=== PATIENT | male | born 1980 | race Caucasian/White ===

== ENCOUNTER 2018-01-19 22:00 | Emergency (ER) | payer SELFPAY ==
[~2018-01-19] VITALS: Ht 177.8 cm; Wt 88.5 kg
[2018-01-19 22:20] VITALS: BP 156/84
[2018-01-19 23:02] LABS: BASOPHILS % (AUTO) 0.9 % (0.0-2.0); EOSINOPHILS % (AUTO) 4.2 % (0.0-3.0); HEMATOCRIT 53.4 % (42.0-52.0); LYMPHOCYTES % (AUTO) 32.1 % (20.0-45.0); MEAN CORPUSCULAR VOLUME 93 FL (80-99); MONOCYTES % (AUTO) 6.5 % (1.0-10.0); NEUTROPHILS % (AUTO) 56.3 % (45.0-75.0); PLATELET COUNT 306 K/UL (150-450); RED BLOOD COUNT 5.74 M/UL (4.70-6.10); RED CELL DISTRIBUTION WIDTH 11.3 % (11.6-14.8); WHITE BLOOD COUNT 7.3 K/UL (4.8-10.8)
[2018-01-19 23:03] LABS: HEMOGLOBIN 18.4 G/DL (14.2-18.0)
[2018-01-19 23:04] LABS: ANION GAP 10 mmol/L (5-15); BLOOD UREA NITROGEN 8 mg/dL (7-18); CALCIUM 8.6 MG/DL (8.5-10.1); CARBON DIOXIDE 29 MMOL/L (21-32); CHLORIDE 105 MMOL/L (98-107); CREATININE 0.6 MG/DL (0.55-1.30); POTASSIUM 3.9 MMOL/L (3.5-5.1); SODIUM 143 MMOL/L (136-145)
[2018-01-19 23:10] LABS: ALANINE AMINOTRANSFERASE 110 U/L (12-78); ALBUMIN 3.7 G/DL (3.4-5.0); ALBUMIN/GLOBULIN RATIO 0.7 (1.0-2.7); ALKALINE PHOSPHATASE 99 U/L (46-116); ASPARTATE AMINO TRANSFERASE 73 U/L (15-37); BILIRUBIN,TOTAL 0.1 MG/DL (0.2-1.0); CREATINE KINASE 121 U/L (26-308)
--- NOTE | 2018-01-19 23:13 | Diagnostic Imaging Report ---
EXAM: XR Chest, 1 View CLINICAL HISTORY: ALOC TECHNIQUE: Frontal view of the chest. COMPARISON: No relevant prior studies available. FINDINGS: Lungs: Low lung volumes. No consolidation. Pleural space: Unremarkable. No pneumothorax. Heart: Unremarkable. No cardiomegaly. Mediastinum: Unremarkable. Bones/joints: Unremarkable. IMPRESSION: No acute cardiopulmonary process.
[2018-01-20 02:40] VITALS: BP 150/82
[2018-01-20 05:35] VITALS: BP 146/82
[2018-01-20 06:07] VITALS: BP 146/82
--- NOTE | 2018-01-20 11:32 | Emergency Room Report ---
History of Present Illness General Chief Complaint: Alcohol Intoxication Source: EMS Present Illness HPI EMS called by concerned citizens as patient unresponsive on side walk. Alleged alcohol ingestion. Glucose normal in field. No evidence of head trauma. No other history available. Allergies: Coded Allergies: No Known Allergies (Unverified , 01/19/18) Patient History Limited by: medical condition Past Medical History: see triage record Social History: Reports: alcohol use Social History Narrative found on streets Reviewed Nursing Documentation: PMH: Agreed; PSxH: Agreed Nursing Documentation-PMH Past Medical History: No Stated History Review of Systems All Other Systems: limited Physical Exam Vital Signs Date Time Temp Pulse Resp B/P (MAP) Pulse Ox O2 Delivery O2 Flow Rate FiO2 01/19/18 22:12 97.9 92 12 156/84 98 Room Air Sp02 EP Interpretation: reviewed, normal General Appearance: other - alcohol on breath, Stupor Head: normocephalic, atraumatic Eyes: bilateral eye PERRL, bilateral eye abnormal EOM - nystagmus, bilateral eye Scleral Injection ENT: moist mucus membranes - + gag Neck: supple, no bony tend Respiratory: chest non-tender, lungs clear, normal breath sounds Cardiovascular #1: regular rate, rhythm Cardiovascular #2: 2+ radial (L) Gastrointestinal: non tender, soft, decreased bowel sounds Genitourinary: no CVA tenderness Musculoskeletal: back normal, digits/nails normal Neurologic: DTRs symmetric, sensory intact - reacts to pain all 4, other - stupor Psychiatric: other - stupor Reflexes: 1+ knee (R), 1+ knee (L) Skin: no rash, warm/dry Medical Decision Making Diagnostic Impression: Primary Impression: Acute alcoholic intoxication Qualified Codes: F10.929 - Alcohol use, unspecified with intoxication, unspecified ER Course Patient with ALOC/stupor with alleged alcohol ingestion. DDX: alcohol intoxication, polypharmacy abuse, electrolyte abnormalities amongst others. Evaluation with CXR and labs. Treatment with IV hydration. Will need re- evaluation when more sober. Based on exam (no head trauma), CT not initially indicated, but may need to be done if not clinically better with repeated exams. CXR clear. Labs with elevated BAL. Elevated LFTs and H/H. IV hydration continues. Patient fully awake in AM and ambulatory. Denies SI or HI. Wants to leave and refusing discussion or discharge papers. Laboratory Tests Test 01/19/18 22:28 01/20/18 00:50 White Blood Count 7.3 K/UL (4.8-10.8) Red Blood Count 5.74 M/UL (4.70-6.10) Hemoglobin 18.4 G/DL (14.2-18.0) *H Hematocrit 53.4 % (42.0-52.0) H Mean Corpuscular Volume 93 FL (80-99) Mean Corpuscular Hemoglobin 32.1 PG (27.0-31.0) H Mean Corpuscular Hemoglobin Concent 34.5 G/DL (32.0-36.0) Red Cell Distribution Width 11.3 % (11.6-14.8) L Platelet Count 306 K/UL (150-450) Mean Platelet Volume 6.2 FL (6.5-10.1) L Neutrophils (%) (Auto) 56.3 % (45.0-75.0) Lymphocytes (%) (Auto) 32.1 % (20.0-45.0) Monocytes (%) (Auto) 6.5 % (1.0-10.0) Eosinophils (%) (Auto) 4.2 % (0.0-3.0) H Basophils (%) (Auto) 0.9 % (0.0-2.0) Sodium Level 143 MMOL/L (136-145) Potassium Level 3.9 MMOL/L (3.5-5.1) Chloride Level 105 MMOL/L (98-107) Carbon Dioxide Level 29 MMOL/L (21-32) Anion Gap 10 mmol/L (5-15) Blood Urea Nitrogen 8 mg/dL (7-18) Creatinine 0.6 MG/DL (0.55-1.30) Estimate Glomerular Filtration Rate > 60 mL/min (>60) Glucose Level 103 MG/DL (74-106) Calcium Level 8.6 MG/DL (8.5-10.1) Total Bilirubin 0.1 MG/DL (0.2-1.0) L Aspartate Amino Transferase (AST) 73 U/L (15-37) H Alanine Aminotransferase (ALT) 110 U/L (12-78) H Alkaline Phosphatase 99 U/L (46-116) Total Creatine Kinase 121 U/L (26-308) Total Protein 8.9 G/DL (6.4-8.2) H Albumin 3.7 G/DL (3.4-5.0) Globulin 5.2 g/dL Albumin/Globulin Ratio 0.7 (1.0-2.7) L Salicylates Level 1.7 ug/mL (2.8-20) L Acetaminophen Level < 2 MCG/ML (10-30) L Serum Alcohol 321 mg/dL Urine Opiates Screen Negative (NEGATIVE) Urine Barbiturates Screen Negative (NEGATIVE) Phencyclidine (PCP) Screen Negative (NEGATIVE) Urine Amphetamines Screen Negative (NEGATIVE) Urine Benzodiazepines Screen Negative (NEGATIVE) Urine Cocaine Screen Negative (NEGATIVE) Urine Marijuana (THC) Screen Negative (NEGATIVE) Chest X-Ray Diagnostic Results Chest X-Ray Diagnostic Results : Chest X-Ray Ordered: Yes # of Views/Limited/Complete: 1 View Indication: Other EP Interpretation: Yes Interpretation: no consolidation, no effusion, no pneumothorax Impression: No acute disease Electronically Signed by: Cuate Robledo MD Last Vital Signs Date Time Temp Pulse Resp B/P (MAP) Pulse Ox O2 Delivery O2 Flow Rate FiO2 01/20/18 06:07 98.2 78 15 146/82 98 Room Air Status: improved Disposition: ELOPED Condition: Improved Referrals: NOT CHOSEN IPA/,REFERRING (PCP) Cuate Robledo MD Jan 20, 2018 11:31
== END 2018-01-20 06:09 | disposition left against medical advice (07) ==
LOC: EDBD 22:00 → EMR 22:30
DX: F10.929 Alcohol use, unspecified with intoxication, unspecified (principal)
CPT/HCPCS: 36415; 71045; 80053; 80307; 82550; 85025; 96360; 96361; 99284; G0480; 80329